=== PATIENT | female | born 1975 | race Hispanic/Latino ===

== ENCOUNTER → 2017-07-17 | Day surgery (SDC) | payer OTHER ==
[~2017-07-17] VITALS: Ht 144.8 cm; Wt 62.1 kg
[~2017-07-17] MED LIST: CARAFATE PO; CLOBETASOL0.051 EX; CYCLOBENZAPR5 MG PO; FLAGYL500 MG OR; HYDROCO/APAP1 TA9 PO; LEVOTHYROXIN25 MC1 PO; MOTRIN800 MG PO; MULTI VIT PO; NAPROXEN SOD550 MG OR; OMEPRAZOLE20 M1 PO; PROTONIX40 M2 PO; SYNTHROID75 MCG PO
[2017-07-17 10:59] VITALS: BP 114/66
== END | disposition home or self-care (01) | DRG 392 ==
LOC: ENDO 09:11 → ORM 09:20 → ENDO 10:40 → ORM 12:15
PROVIDERS: ATTEND Surgery
PROC: 0DB68ZX Excision of Stomach, Via Natural or Artificial Opening Endoscopic, Diagnostic (ICD-10-PCS; principal; 2017-07-17)
PROC: 0DB78ZX Excision of Stomach, Pylorus, Via Natural or Artificial Opening Endoscopic, Diagnostic (ICD-10-PCS; 2017-07-17)
DX: K29.50 Unspecified chronic gastritis without bleeding (principal); K31.7 Polyp of stomach and duodenum; Q40.2 Other specified congenital malformations of stomach; K80.80 Other cholelithiasis without obstruction; E03.9 Hypothyroidism, unspecified

== ENCOUNTER 2019-03-19 20:15 | Emergency (ER) | payer OTHER ==
[~2019-03-19] VITALS: Ht 121.9 cm; Wt 59.0 kg
[2019-03-19 23:05] VITALS: BP 134/88
== END 2019-03-19 23:16 | disposition home or self-care (01) | DRG 563 ==
LOC: ED 20:15
DX: S46.912A Strain of unspecified muscle, fascia and tendon at shoulder and upper arm level, left arm, initial encounter (principal); S20.212A Contusion of left front wall of thorax, initial encounter; W22.11XA Striking against or struck by driver side automobile airbag, initial encounter; Y92.410 Unspecified street and highway as the place of occurrence of the external cause

== ENCOUNTER 2023-02-10 22:55 | Emergency (ER) | payer SELFPAY ==
[~2023-02-10] VITALS: Ht 144.8 cm; Wt 77.0 kg
[2023-02-10 23:46] VITALS: BP 145/66
[2023-02-11 00:10] LABS: BASO% 0.2 % (0-3); EOS% 1.4 % (0-8); HEMATOCRIT 41.9 % (37.0-47.0); HEMOGLOBIN 13.2 g/dl (12.0-16.0); IMMATURE GRANULOCYTES 0.3 % (0.0-5.0); LYMPH% 30.9 % (15-41); MEAN CELL VOLUME 91.5 fL CALC (80.0-100.0); MEAN CORPUSCULAR HGB 28.8 pG CALC (26.0-32.0); MEAN CORPUSCULAR HGB CONC 31.5 g/dL CAL (32.0-36.0); MONO% 5.8 % (2-13); NEUT# 5.37 thou/uL (2.00-7.15); NEUT% 61.4 % (42-76); RED BLOOD COUNT 4.58 mill/uL (4.20-5.60); RED CELL DISTRI WIDTH 15.2 % (11.5-15.5)
[2023-02-11 00:14] VITALS: BP 149/71
[2023-02-11 00:21] LABS: ALBUMIN 4.2 g/dL (3.2-5.0); ALKALINE PHOSPHATASE 97 u/l (38-126); BUN 11 mg/dL (7-17); BUN/CREATININE RATIO 14 (12-20 (CALC)); CHLORIDE 105 mmol/l (95-108); CREATININE 0.8 mg/dL (0.5-1.0); GFR FOR AFR.AMER. > 60 ML/MIN (>=60 (CALC)); GFR OTHER RACES > 60 ML/MIN (>=60 (CALC)); LIPASE 135 u/l (23-300); POTASSIUM 3.6 mmol/l (3.5-5.1); SODIUM 136 mmol/l (137-146); TOTAL PROTEIN 8.3 g/dL (6.3-8.2)
[2023-02-11 00:28] LABS: ANION GAP 16 (6-22 (CALC)); BILIRUBIN, TOTAL 0.6 mg/dL (0.02-1.3); CARBON DIOXIDE 19 mmol/l (22-30); SGOT/AST 31 u/l (14-36)
[2023-02-11 00:30] VITALS: BP 128/74
[2023-02-11 00:45] VITALS: BP 127/70
[2023-02-11 01:15] VITALS: BP 143/72
[2023-02-11 02:03] LABS: URINE BILIRUBIN - DIPSTICK Negative (NEGATIVE); URINE BLOOD DIPSTICK Negative (NEGATIVE); URINE GLUCOSE - DIPSTICK Negative (NEGATIVE); URINE KETONE Negative (NEGATIVE); URINE LEUK ESTERASE Negative (NEGATIVE); URINE NITRITE - DIPSTICK Negative (Negative); URINE PROTEIN - DIPSTICK Negative (NEG-TRACE); URINE SPECIFIC GRAVITY 1.025; URINE UROBILINOGEN - DIPSTICK 0.2 E.U./dL (0.2)
[2023-02-11 02:04] LABS: URINE COLOR Yellow
[2023-02-11] MEDS ORDERED: DICYCLOMINE HYD10 MG PO (03:14)
[2023-02-11] MEDS ORDERED: PERCOCET 5/325M1 TAB PO (03:15)
[2023-02-11 03:24] VITALS: BP 143/72
== END 2023-02-11 03:30 | disposition home or self-care (01) | DRG 392 ==
LOC: ED 22:55
PROVIDERS: Emergency Medicine
DX: R10.32 Left lower quadrant pain (principal); R10.30 Lower abdominal pain, unspecified